=== PATIENT | male | born 1970 ===

== ENCOUNTER 2023-12-19 05:33 | Day surgery (SDC) | payer OTHER ==
[2023-12-12 09:36] LABS: HEMATOCRIT 48.5 % (39.0-48.0); HEMOGLOBIN 16.6 g/dL (13-16.00); MEAN CELL VOLUME 90.5 fL (80.0-100.00); MEAN CORPUSCULAR HGB CONC 34.3 g/dl (32.0-36.0); PLATELET COUNT 233 K/uL (150-450); RED BLOOD COUNT 5.36 M/uL (4.00-6.00); RED CELL DISTRIBUTION WIDTH 13.6 % (11.5-14.5)
[2023-12-12 10:01] LABS: INR 1.01; PARTIAL THROMBOPLASTIN TIME 32.7 SECONDS (22.0-34.0)
[2023-12-12 10:26] LABS: URINE APPEARANCE Clear; URINE BILIRRUBIN Negative (NEGATIVE); URINE BLOOD Negative; URINE COLOR Yellow; URINE GLUCOSE Negative (NEGATIVE); URINE KETONE Negative (NEGATIVE); URINE LEUKOCYTE Negative; URINE NITRATE Negative; URINE PROTEIN Negative (NEGATIVE); URINE UROBILINOGEN 0.2 E.U./dl
[2023-12-12 10:30] LABS: URINE WBC 2.7 uL (0.0-23.2)
[2023-12-12 10:42] LABS: URINE BACTERIA 0 uL (0.0-1933); URINE EPITHELIAL CELLS 0.7 uL (0.0-38.8); URINE RBC 0.1 uL (0.0-20.8)
[2023-12-12 10:52] LABS: ALBUMIN 4.3 gm/dL (3.4-5.0); BILIRUBIN TOTAL 0.63 mg/dL (0.3-1.2); CALCIUM 9.9 mg/dL (8.5-10.1); CREATININE SERUM 0.82 mg/dL (0.70-1.30); GFR 99.45; GLOBULINA 3.7 G/DL (2.4-3.5); POTASSIUM 5.21 mEq/L (3.5-5.1)
[~2023-12-19 05:33] MED LIST: LIPITOR40 M1; PANTOPRAZOLE SO40 M2; VITAMIN D3
[2023-12-19] MEDS ORDERED: CEFAZOLIN SODIUM 1,000 MG VIAL ONE (09:13)
[2023-12-19] MEDS ORDERED: CEFAZOLIN SODIUM 1,000 MG VIAL IV ONE (09:45)
[2023-12-19] MEDS ORDERED: SUGAMMADEX SODIUM 200 MG/2 ML VIAL IV ONE ×2 (10:33→10:45)
[2023-12-19] MEDS ORDERED: MORPHINE SULFATE 4 MG/ML VIAL IV ONE (11:25)
== END 2023-12-19 12:45 | disposition home or self-care (01) ==
LOC: CIR.AMB 05:33
PROVIDERS: ATTEND Surgery
DX: K43.6 Other and unspecified ventral hernia with obstruction, without gangrene (principal)
CPT/HCPCS: 49594; C1781